=== PATIENT | female | born 1995 | race Caucasian/White ===

== ENCOUNTER 2023-02-17 09:40 | Outpatient (CLI) | payer OTHER ==
[2023-02-17 10:21] VITALS: BP 110/63; PULSE 75; RESP 15; TEMP 97.1
--- NOTE | 2023-02-19 15:29 | P.MSEPDOC ---
Presenting Problems - Arrival Data Date of Arrival on Unit: 02/17/23 Time of Arrival on Unit: 09:40 Mode of Transport: Ambulatory - Complaint OB-Reason for Admission/Chief Complaint: Pain Comment: upper abdominal- rating at 12/19 Medical History - Information : 3 Para: 1 : 1 - Gestational Age Gestational Age by KACI (wks/days): 34 Weeks and 1 Days - History Complications: Prior Review of Systems - Review of Systems Constitutional: No problems Breast: No problems ENT: No problems Cardiovascular: No problems Respiratory: No problems Gastrointestinal: No problems Genitourinary: No problems Musculoskeletal: No problems Neurological: No problems Skin: No problems Vital Signs - Temperature Temperature: 97.1 F Temperature Source: Temporal Artery Scan - Pulse Brachial Pulse Rate: 75 Pulse Assessment Method: Automatic Cuff - Respirations Respiratory Rate: 15 Oxygen Delivery Method: Room Air O2 Sat by Pulse Oximetry: 97 - Blood Pressure Left Arm Sitting Blood Pressure: 110/63 Blood Pressure Mean: 78 Blood Pressure Source: Automatic Cuff Medical Screen Scoring - Assessment - Baby A Baseline FHR: 125 Heart Rate - NICHD Category: Category I (Normal) NST: Reactive Physician Notification - Physician Notified Physician Notified Date: 02/17/23 Physician Notified Time: 10:10 Physician: Fernanda Choi Order Received: Yes - Notification Comment Comment: pt here for upper abd pain. sees Dr Norma Sewell. Maternal Triage Index - Non-Urgent/Priority 4 Non-Urgent Priority 4: Yes Criteria Met for Priority 4: adominal pain Disposition - Disposition OB Disposition: Physician follow up in office, Triage, Discharge to home, Written follow up instructions reviewed Discharge Date: 02/17/23 Discharge Time: 10:15 I agree with the RN Medical Screening Exam: No Physician's MSE Comment: Inadequate documentation Case reviewed; plan agreed upon as documented in EMR&OBIX.: No Diagnosis: Abdominal pain and
== END 2023-02-17 10:15 | disposition home or self-care (01) ==
LOC: FBPOP 09:40
PROVIDERS: ATTEND Obstetrics & Gynecology
DX: O00.01 Abdominal pregnancy with intrauterine pregnancy (principal); Z3A.34 34 weeks gestation of pregnancy; O60.10X1 Preterm labor with preterm delivery, unspecified trimester, fetus 1
CPT/HCPCS: 59025; 99213